=== PATIENT | female | born 1950 | race Caucasian/White ===

== ENCOUNTER 2016-12-27 16:30 | Emergency (ER) | payer OTHER ==
[~2016-12-27] VITALS: Ht 152.4 cm; Wt 55.0 kg
[~2016-12-27 16:30] MED LIST: CYMB30CA PO; NEXI20CA PO; PREG100 PO; ZOCO40TA PO
[2016-12-27 16:32] VITALS: BP 121/77; PULSE 104; RESP 17; TEMP 98.1; O2SAT 96
[2016-12-27 16:45] VITALS: BP 102/70; PULSE 99; RESP 18; O2SAT 98
[2016-12-27] MEDS ORDERED: GUAI100L4 (16:52)
--- NOTE | 2016-12-27 17:11 | RADRPT ---
EXAM DATE/TIME: 12/27/2016 17:15 [place] COMPARISON: No previous studies available for comparison. INDICATIONS : Short of breath, congestion, and chest pain MEDICAL HISTORY : None. SURGICAL HISTORY : None. ENCOUNTER: Initial ACUITY: 1 week PAIN SCORE: 3/10 LOCATION: Bilateral chest FINDINGS: Hiatal hernia. Cardiomegaly. Degenerative changes of the spine. No consolidation or effusion. CONCLUSION: No acute disease. Jose Maciel MD on December 27, 2016 at 17:09 Board Certified Radiologist. This report was verified electronically.
[2016-12-27] MEDS ORDERED: vitamin D (17:17)
[2016-12-27] MEDS ORDERED: M2 M100C (17:17)
[2016-12-27] MEDS ORDERED: KRIL300C (17:17)
[2016-12-27] MEDS ORDERED: NEXI20CA PO (17:17)
[2016-12-27] MEDS ORDERED: CYMB60CA PO (17:17)
[2016-12-27] MEDS ORDERED: LIPI10TA PO (17:17)
[2016-12-27] MEDS ORDERED: LYRI50CA PO (17:17)
[2016-12-27 17:31] LABS: AUTOMATED NEUTROPHIL # 4.8 TH/MM3 (1.8-7.7); BASOPHIL # 0.1 TH/MM3 (0-0.2); BASOPHIL % 1.2 % (0.0-2.0); EOSINOPHIL # 0.4 TH/MM3 (0-0.4); EOSINOPHIL % 4.4 % (0.0-4.0); HEMATOCRIT 41.7 % (35.0-46.0); HEMO FLAGS DIFF FINAL; LYMPH % 30.2 % (9.0-44.0); LYMPHOCYTE # 2.6 TH/MM3 (1.0-4.8); MEAN CORPUSCULAR HEMOGLOBIN 30.2 PG (27.0-34.0); MEAN CORPUSCULAR HGB CONC 33.9 % (32.0-36.0); MONO % 8.5 % (0.0-8.0); NEUT % 55.7 % (16.0-70.0); PLATELET COUNT 345 TH/MM3 (150-450); RED BLOOD COUNT 4.69 MIL/MM3 (4.00-5.30); RED CELL DISTRIBUTION WIDTH 13.2 % (11.6-17.2); WHITE BLOOD COUNT 8.7 TH/MM3 (4.0-11.0)
--- NOTE | 2016-12-27 17:37 | PD ---
HPI Chief Complaint: Respiratory Symptoms Time Seen by Provider: 16:37 Travel History International Travel<30 days: No Contact w/Intl Traveler<30days: No Traveled to known affect area: No History of Present Illness HPI This is a 66-year-old female who presents to the emergency department with 1 week and bandlike pain around her "lungs", constant for one week, moderate severity, worse with exertion, improved with rest associated with some shortness of breath. She denies any associated cough, fevers, chills, sore throat or rhinorrhea. She says she feels like something is in her lungs. She does have about an [id number] smoking history. Her father had a heart attack when he was 58. She thinks she had a normal stress test last year. Saw her primary care physician who put her on Levaquin for this which she completed that she doesn't feel any better. PFSH Past Medical History High Cholesterol: Yes Fibromyalgia: Yes GERD: Yes ?: Not Menopausal: Yes : 1 Para: 2 Past Surgical History Section: Yes (1969) Social History Alcohol Use: Yes (socially) Tobacco Use: No (quit 2 years ago) Substance Use: No Allergies-Medications (Allergen,Severity, Reaction): Coded Allergies: No Known Allergies (Unverified , 12/27/16) Reported Meds & Prescriptions Reported Meds & Active Scripts Active Reported [vitamin D] Krill Oil 300 Mg Cap Magnesium [address] (Duloxetine HCl) 60 Mg Capdr 60 Mg PO DAILY Lipitor (Atorvastatin Calcium) 10 Mg Tab 10 Mg PO HS Lyrica (Pregabalin) 50 Mg Cap 50 Mg PO BID Nexium (Esomeprazole DR) 20 Mg Capdr 20 Mg PO DAILY Mucinex Chest Congestion (Guaifenesin) 100 Mg/5 Ml Liq Nexium (Esomeprazole Magnesium) Esomeprazole Magnesium 20 mg Cap 20 Mg PO BID Lyrica (Pregabalin) 100 Mg Cap 100 Mg PO BID Cymbalta (Duloxetine HCl) 30 Mg Cap 60 Mg PO DAILY Zocor 40 mg (Simvastatin) 40 Mg Tab 1 Tab PO HS Review of Systems Except as stated in HPI: all other systems reviewed are Neg Physical Exam Narrative GENERAL:Well appearing, no acute distress SKIN: Warm and dry. HEAD: Atraumatic. Normocephalic. EYES: Pupils equal and round. No injection or drainage. ENT: Moist mucous membranes NECK: Trachea midline. CARDIOVASCULAR: Regular rate and rhythm. No murmur appreciated. RESPIRATORY: Clear to auscultation. Breath sounds equal bilaterally. GASTROINTESTINAL: Abdomen soft, non-tender, nondistended. MUSCULOSKELETAL: No obvious deformities. NEUROLOGICAL: Awake and alert. No obvious cranial nerve deficits. Moving all extremities. PSYCHIATRIC: Appropriate mood and affect; insight and judgment normal. Data Data Last Documented VS Vital Signs Date Time Temp Pulse Resp B/P Pulse Ox O2 Delivery O2 Flow Rate FiO2 12/27/16 16:45 99 18 102/70 98 Room Air 12/27/16 16:32 98.1 Orders Electrocardiogram (12/27/16 ) Complete Blood Count With Diff (12/27/16 16:54) Comprehensive Metabolic Panel (12/27/16 16:54) Chest, Pa & Lat (12/27/16 ) Troponin I (12/27/16 16:54) D-Dimer (12/27/16 16:54) Labs Laboratory Tests Test 12/27/16 17:20 White Blood Count 8.7 TH/MM3 Red Blood Count 4.69 MIL/MM3 Hemoglobin 14.2 GM/DL Hematocrit 41.7 % Mean Corpuscular Volume 89.0 FL Mean Corpuscular Hemoglobin 30.2 PG Mean Corpuscular Hemoglobin 33.9 % Concent Red Cell Distribution Width 13.2 % Platelet Count 345 TH/MM3 Mean Platelet Volume 8.6 FL Neutrophils (%) (Auto) 55.7 % Lymphocytes (%) (Auto) 30.2 % Monocytes (%) (Auto) 8.5 % Eosinophils (%) (Auto) 4.4 % Basophils (%) (Auto) 1.2 % Neutrophils # (Auto) 4.8 TH/MM3 Lymphocytes # (Auto) 2.6 TH/MM3 Monocytes # (Auto) 0.7 TH/MM3 Eosinophils # (Auto) 0.4 TH/MM3 Basophils # (Auto) 0.1 TH/MM3 CBC Comment DIFF FINAL Differential Comment D-Dimer Quantitative (PE/DVT) 0.34 MG/L FEU Sodium Level 141 MEQ/L Potassium Level 3.9 MEQ/L Chloride Level 104 MEQ/L Carbon Dioxide Level 28.0 MEQ/L Anion Gap 9 MEQ/L Blood Urea Nitrogen 14 MG/DL Creatinine 0.87 MG/DL Estimat Glomerular Filtration 65 ML/MIN Rate Random Glucose 89 MG/DL Calcium Level 8.6 MG/DL Total Bilirubin 0.5 MG/DL Aspartate Amino Transf 16 U/L (AST/SGOT) Alanine Aminotransferase 18 U/L (ALT/SGPT) Alkaline Phosphatase 78 U/L Troponin I LESS THAN 0.02 NG/ML Total Protein 7.2 GM/DL Albumin 3.6 GM/DL MDM Medical Decision Making Medical Screen Exam Complete: Yes Emergency Medical Condition: Yes Medical Record Reviewed: Yes (patient had a stress test in December of last year which was reassuring) Interpretation(s) Afebrile, mild tachycardia, normotensive Normal sinus rhythm, no ST changes, No leukocytosis Electrolytes are reassuring Troponin is normal D-dimer is 0.34 Chest x-ray: No acute process Differential Diagnosis Pneumonia, bronchitis, pulmonary embolism, pleurisy, acute coronary syndrome Narrative Course This is a 66-year-old female who presents to the emergency department with chest discomfort and shortness of breath which is been going on for 1 week and has not improved despite Levaquin. She was placed on a monitor and an IV was established. Labs are obtained which were all reassuring including a normal troponin and a normal d-dimer. EKG is nonischemic. The patient had a stress test one year ago which was reassuring and her pain has been constant over the past week. I don't think the patient has a life-threatening etiology of her pain. I think she can be discharged and can follow-up with her primary care physician. Diagnosis Primary Impression: Atypical chest pain Patient Instructions: General Instructions Additional Instructions: If you develop severe chest pain, shortness of breath, sweating, lightheadedness , dizziness or difficulty breathing return to the emergency department immediately. Followup with your primary care physician in 2-3 days if your symptoms are not resolved. Med/Other Pt SpecificInfo: No Change to Meds Disposition: 01 DISCHARGE HOME Condition: Stable Erin Echeverria MD Dec 27, 2016 17:37
[2016-12-27 18:09] LABS: ALKALINE PHOSPHATASE 78 U/L (45-117); ALT (GPT) 18 U/L (10-53); ANION GAP 9 MEQ/L (5-15); AST (GOT) 16 U/L (15-37); BLOOD UREA NITROGEN 14 MG/DL (7-18); CHLORIDE 104 MEQ/L (98-107); GLOMERULAR FILTRATION RATE 65 ML/MIN (>89); POTASSIUM 3.9 MEQ/L (3.5-5.1); SODIUM (NA) 141 MEQ/L (136-145); TOTAL BILIRUBIN ADULT 0.5 MG/DL (0.2-1.0)
--- NOTE | 2016-12-28 10:18 | EKG ---
Date Performed: 12/27/2016 Time Performed: 17:16:14 PTAGE: 66 years EKG: Sinus rhythm POSSIBLE ANTERIOR MYOCARDIAL INFARCTION BORDERLINE ECG Compared to prior tracing no significant lai cayla PREVIOUS TRACING : 01/17/2016 09.11 DOCTOR: Edy Marques Interpretating Date/Time 12/28/2016 10:16:36
== END 2016-12-27 18:52 | disposition home or self-care (01) ==
LOC: NEPA 16:30
DX: R07.89 Other chest pain (principal); R06.02 Shortness of breath; M79.7 Fibromyalgia; Z87.891 Personal history of nicotine dependence
CPT/HCPCS: 71020; 80053; 84484; 85025; 85379; 93005